=== PATIENT | male | born 1940 | race Hispanic/Latino ===

== ENCOUNTER 2020-03-08 15:53 | Inpatient (IN) | payer MEDICARE ==
[~2020-03-08] VITALS: Ht 172.7 cm; Wt 52.0 kg
[2020-03-08 16:50] LABS: BASOPHILS % (AUTO) 0.2 % (0.0-5.0); EOSINOPHILS % (AUTO) 0.2 % (0.0-8.0); HEMATOCRIT 39.8 % (42-54); LYMPHOCYTES % (AUTO) 18.3 % (21.0-51.0); MEAN CORPUSCULAR HEMOGLOBIN 30.3 pg (27.0-33.0); MEAN CORPUSCULAR HGB CONC 33.4 g/dL (32.0-36.0); MEAN CORPUSCULAR VOLUME 90.7 fL (79-99); MONOCYTES % (AUTO) 2.4 % (3.0-13.0); NEUTROPHILS % (AUTO) 78.4 % (40.0-77.0); PLATELET COUNT (AUTO) 126 K/uL (130-400); RED BLOOD CELL COUNT(AUTO) 4.39 MIL/uL (4.50-6.20); RED CELL DISTRIBUTION WIDTH 13.9 % (11.0-15.5); WHITE BLOOD COUNT (AUTO) 4.2 K/uL (4.8-10.8)
[2020-03-08 16:55] LABS: CREATININE 1.1 mg/dL (0.5-1.5); POTASSIUM 3.5 mmol/L (3.5-5.1)
[2020-03-08 17:18] LABS: ALBUMIN 2.9 g/dL (3.5-5.0); BILIRUBIN,TOTAL 0.3 mg/dL (0.2-1.0); TOTAL PROTEIN, SERUM 6.5 g/dL (6.0-8.3)
[2020-03-08 17:34] LABS: B-TYPE NATRIURETIC PEPTIDE 83 pg/mL (0-100)
[2020-03-08] MEDS ORDERED: ONDANSETRON HCL 4 MG/2 ML VIAL IVP PRN (19:30)
[2020-03-08] MEDS ORDERED: GUAIFENESIN SUGAR-FREE 100 MG/5 ML UDCUP PO PRN (19:30)
[2020-03-08] MEDS ORDERED: DiphenhydrAMINE HCL 50 MG/ML VIAL IVP PRN (19:30)
[2020-03-08] MEDS ORDERED: ACETAMINOPHEN 325 MG TAB PO PRN ×2 (19:30)
[2020-03-08] MEDS ORDERED: LACTULOSE 20 GM/30 ML UDCUP PO PRN (19:30)
[2020-03-08] MEDS ORDERED: DIPHENHYDRAMINE HCL 25 MG CAPSULE PO PRN (19:30)
[2020-03-08] MEDS ORDERED: ZOLPIDEM TARTRATE 5 MG TAB PO PRN (19:30)
[2020-03-08] MEDS ORDERED: MAG HYDROX/AL HYDROX/SIMETH ES 30 ML SUSP UDCUP PO PRN (19:30)
[2020-03-08] MEDS ORDERED: GUAIFENESIN-DM 200/20 MG 10 ML PO PRN (19:30)
[2020-03-08] MEDS ORDERED: NITROGLYCERIN 0.4 MG SL TAB SL PRN (19:30)
[2020-03-08] MEDS ORDERED: CLONIDINE HCL 0.1 MG TABLET PO PRN (19:30)
[2020-03-08] MEDS ORDERED: IPRATROPIUM/ALBUTEROL SULFATE 3 ML SOLUTION IH PRN (19:30)
[2020-03-08 20:34] LABS: APPEARANCE,URINE Cloudy (CLEAR); BILIRUBIN,URINE Negative (NEGATIVE); COLOR,URINE Yellow (YELLOW); GLUCOSE, URINE (UA) 250 mg/dL (NEGATIVE); KETONES,URINE Negative (NEGATIVE); LEUKOCYTE ESTERASE ,URINE Large (NEGATIVE); NITRATE,URINE Positive (NEGATIVE); OCCULT BLOOD,URINE Trace (NEGATIVE); PROTEIN,URINE POS 1+ mg/dL (NEGATIVE)
[2020-03-08 21:08] LABS: BACTERIA,URINE Many /HPF (None Seen); RBC,URINE None Seen /HPF (0-1); SQUAMOUS EPITHELIAL CELL,UR None Seen /HPF (0-2)
[2020-03-08 22:15] VITALS: BP 100/63
[2020-03-09] VITALS (7 sets, daily range): BP systolic 88–141; BP diastolic 42–71
[2020-03-09] MEDS ORDERED: SODIUM CHLORIDE 0.9% 1000ML 1,000 ML IV SCH (00:30)
[2020-03-09 05:31] LABS: HEMATOCRIT 42.5 % (42-54); MEAN CORPUSCULAR HEMOGLOBIN 30.8 pg (27.0-33.0); MEAN CORPUSCULAR HGB CONC 33.9 g/dL (32.0-36.0); MEAN CORPUSCULAR VOLUME 90.8 fL (79-99); RED BLOOD CELL COUNT(AUTO) 4.68 MIL/uL (4.50-6.20); RED CELL DISTRIBUTION WIDTH 13.9 % (11.0-15.5); WHITE BLOOD COUNT (AUTO) 5.4 K/uL (4.8-10.8)
[2020-03-09 06:13] LABS: ALBUMIN 2.7 g/dL (3.5-5.0); BILIRUBIN,TOTAL 0.4 mg/dL (0.2-1.0); CREATININE 0.9 mg/dL (0.5-1.5); POTASSIUM 3.5 mmol/L (3.5-5.1)
[2020-03-09] MEDS ORDERED: MELA5CAP PO (07:20)
[2020-03-09] MEDS ORDERED: MIRT-92 PO (07:20)
[2020-03-09] MEDS ORDERED: RISP1TAB89 PO (07:20)
[2020-03-09] MEDS ORDERED: LOVA20TA3 PO (07:22)
[2020-03-09] MEDS ORDERED: FAMO-136 PO (07:22)
[2020-03-09] MEDS ORDERED: DIPH25CA85 PO (07:22)
[2020-03-09] MEDS ORDERED: DONE5TAB5 PO (07:26)
[2020-03-09] MEDS ORDERED: TAMS-1 PO (07:26)
[2020-03-09] MEDS ORDERED: MULT-248 PO (07:26)
--- NOTE | 2020-03-09 07:45 | NUR ---
PRIMARY MD DR. WANG IN TO SEE PATIENT. NEW ORDERS RECEIVED AND CARRIED OUT.
[2020-03-09] MEDS ORDERED: DOCUSATE SODIUM 100 MG CAP PO PRN (08:00)
[2020-03-09] MEDS: DONEPEZIL HCL 5 MG TAB PO SCH (08:35)
[2020-03-09] MEDS: RISPERIDONE 1 MG TABLET PO SCH ×2 (08:35→21:26)
[2020-03-09] MEDS: FAMOTIDINE 20MG TAB 20 MG TAB PO SCH (08:35)
[2020-03-09] MEDS: MULTIVITAMIN WITH MINERALS TABLET PO SCH (09:00)
[2020-03-09] MEDS: DEXTROSE 5 %-0.45 % NACL 1,000 ML IV SCH ×2 (10:49→17:55)
--- NOTE | 2020-03-09 11:00 | NUR ---
chart reviewed, acf uploaded in one content Addendum: 03/09/20 at 1430 by MIGUE QUIROZ RN CM Amended: Links added.
--- NOTE | 2020-03-09 14:42 | NUR ---
RD NOTIFICATION Pt admitted with Lethargy, Dehydration, Rhabdomyolysis. Pt underweight, BMI 14.3. 75gm, Puree, NTL diet order in place. Recommend 30mL ProMod TID with meals. Recommend Glucerna 1.5 can (CHILLED) TID with meals RD to continue to monitor. Please notify as additional nutrition concerns arise. Thank you. Addendum: 03/09/20 at [address] Amended: Links added.
[2020-03-09] MEDS: SIMVASTATIN 20 MG TABLET PO SCH (21:25)
[2020-03-09] MEDS: TAMSULOSIN HCL 0.4 MG CAP.ER.24H PO SCH (21:25)
[2020-03-09] MEDS: MIRTAZAPINE 15 MG TABLET PO SCH (21:26)
[2020-03-10 03:53] VITALS: BP 83/45
[2020-03-10] MEDS: DEXTROSE 5 %-0.45 % NACL 1,000 ML IV SCH ×2 (04:22→15:00)
[2020-03-10 05:56] LABS: CREATININE 0.8 mg/dL (0.5-1.5); POTASSIUM 3.2 mmol/L (3.5-5.1)
[2020-03-10 06:04] LABS: HEMATOCRIT 36.2 % (42-54); MEAN CORPUSCULAR HEMOGLOBIN 30.5 pg (27.0-33.0); MEAN CORPUSCULAR HGB CONC 33.4 g/dL (32.0-36.0); MEAN CORPUSCULAR VOLUME 91.2 fL (79-99); PLATELET COUNT (AUTO) 76 K/uL (130-400); RED BLOOD CELL COUNT(AUTO) 3.97 MIL/uL (4.50-6.20); RED CELL DISTRIBUTION WIDTH 14.1 % (11.0-15.5); WHITE BLOOD COUNT (AUTO) 2.7 K/uL (4.8-10.8)
[2020-03-10 07:06] LABS: BAND NEUTROPHILS % (MANUAL) 44 % (0-2); LYMPHOCYTES % (MANUAL) 26 % (22-44); MAN.DIFF COMMENT-IMPRESSION MANUAL DIFFERENTIAL; MONOCYTES % (MANUAL) 7 % (2-9); PLATELET MORPHOLOGY COMMENT DECREASED; SEGMENTED NEUTROPHILS % 23 % (40-70)
[2020-03-10 08:00] VITALS: BP 106/47
[2020-03-10] MEDS ORDERED: POTASSIUM CHLORIDE 20MEQ/100ML 100 ML IV PRN (08:15)
[2020-03-10] MEDS ORDERED: MAGNESIUM 2GM PREMIX 50ML 50 ML IV PRN (08:15)
[2020-03-10] MEDS: SODIUM CHLORIDE 0.9% 1000ML 1,000 ML IV SCH ×2 (08:15→18:15)
[2020-03-10] MEDS ORDERED: POTASSIUM CHLORIDE 10% ELIXIR 20 MEQ/15 ML UDCUP PO PRN (08:15)
[2020-03-10] MEDS ORDERED: LIDOCAINE HCL-MPF 1% 2ML VIAL IV PRN ×2 (08:15)
[2020-03-10] MEDS ORDERED: POTASSIUM CHLORIDE 20 MEQ ERTAB PO PRN (08:15)
[2020-03-10] MEDS: FAMOTIDINE 20MG TAB 20 MG TAB PO SCH (10:24)
[2020-03-10] MEDS: CEFTRIAXONE SODIUM 1 GM IVP SCH (10:24)
[2020-03-10] MEDS: MULTIVITAMIN WITH MINERALS TABLET PO SCH (10:24)
[2020-03-10] MEDS: RISPERIDONE 1 MG TABLET PO SCH ×2 (10:24→19:53)
[2020-03-10] MEDS: DONEPEZIL HCL 5 MG TAB PO SCH (10:24)
[2020-03-10] MEDS: MEGESTROL 400 MG/10 ML UDCUP PO SCH (10:26)
--- NOTE | 2020-03-10 10:59 | NUR ---
Patient is unable to sign IM Letter, he is confused. There is no contact information listed on his facesheet so I am unable to get telephone consent.
[2020-03-10 11:52] LABS: ABG HCO3 24.7 mmol/L (21.0-28.0); ABG OXYGEN SATURATION 88.2 % (95.0-99.0); ABG PCO2 41 mmHg (35-48)
[2020-03-10 11:59] VITALS: BP 103/36
[2020-03-10] MEDS: POTASSIUM CHLORIDE 20MEQ/100ML 100 ML IV PRN (13:04)
[2020-03-10 16:43] VITALS: BP 92/47
--- NOTE | 2020-03-10 16:47 | NUR ---
CM NOTE/SNF REFERRAL PER FARAZ BARROW TO RETURN TO [facility] WHEN STABLE. FAMILY CALLED TO SPEAK IN REGARDS TO DC PLAN. FIRST DEMARCO (FELIX?) MIREILLE CALLED AT [phone], NO ANSWER AND VOICEMAIL FULL. NEXT VESNA HART CALLED AT [phone], NO ANSWER, VOICEMAIL LEFT. WILL CONTINUE TO F/U WITH FAMILY FOR COOKIE
--- NOTE | 2020-03-10 16:54 | NUR ---
CM NOTE/COOKIE/IA FELIX MIREILLE (SPOUSE) [phone] RETURNED CALL, OK TO RETURN TO [facility] WHEN MEDICALLY CLEARED. PER SPOUSE PATIENT IS BEDBOUND AND REQUIRES TOTAL CARE, PRIOR TO BEING IN [facility], HE WAS AT A [facility] IN [facility], SPOUSE DOESNT RECALL NAME AT THE MOMENT, MOVED TO [place] IN AUGUST 2018 AND HAS BEEN AT [facility] SINCE. CM TO FOLLOW UP WITH REFERRAL.
--- NOTE | 2020-03-10 17:16 | NUR ---
CM NOTE/IA SEE NOTE ON 03/10/20 TITLED CM NOTE/COOKIE/IA FOR IA INFORMATION. Addendum: 03/10/20 at 1718 by ADRIENNE PAULINO RN CM Amended: Links added.
--- NOTE | 2020-03-10 17:19 | NUR ---
CM NOTE/[facility] REFERRAL PER FARAZ BARROW TO RETURN TO SNF ONCE MEDICALLY CLEARED. MARITZA FROM [facility] MADE AWARE, CLINICAL PACKET EMAILED FOR REVIEW, PER MARITZA, NO PAS[facility] NEEDED. PENDING ACCEPTANCE AND MEDICAL CLEARANCE TO [facility]. CM TO FOLLOW UP.
[2020-03-10] MEDS: SIMVASTATIN 20 MG TABLET PO SCH (19:53)
[2020-03-10] MEDS: MIRTAZAPINE 15 MG TABLET PO SCH (19:53)
[2020-03-10] MEDS: TAMSULOSIN HCL 0.4 MG CAP.ER.24H PO SCH (19:53)
[2020-03-10 20:00] VITALS: BP 110/51
--- NOTE | 2020-03-10 21:00 | NUR ---
RECEIVED PATIENT IN BED, LETHARGIC, WITHDRAWS ONLY TO PAIN, DOES NOT OPEN EYES. PATIENT ON VENTI MASK AT 15L (50% FIO2) WITH SATURATIONS GREATER THAN 90%. HEART RATE BETWEEN 50-40 BPM. HOB ELEVATED. I CALLED DR. WANG, UPDATED ON STATUS INCLUDING CXR AND ABG RESULTS FROM E[facility]LI[facility] TODAY. INFORMED HIM ON HR AND THAT PATIENT IS ON VENTI MASK AND CONT TO BE LETHARGIC. NEW ORDER RECEIVED TO DISCONTINUE IV FLUIDS. SR UP X4, F/C DRAINING TO GRAVITY WITH CLEAR YELLOW URINE. WILL CONT TO MONITOR CLOSELY.
[2020-03-11] VITALS (8 sets, daily range): BP systolic 73–141; BP diastolic 38–71
--- NOTE | 2020-03-11 04:06 | NUR ---
LOW BP BP AT 73/38, I CALLED DR. WANG UPDATED ON STATUS. INSTRUCTED TO ADMINISTER 500 ML NS BOLUS. I INFORMED HIM THAT I SPOKE WITH PT'S DAUGHTER AND SHE TOLD ME THAT HER FATHER HAS DNR STATUS AT [facility]. I TOLD DR. WANG I WAS IN THE PROCESS OF CONTACTING PT'S SPOUSE TO VERIFY INFORMATION. I SPOKE WITH MRS. DEMARCO KENDRICK, SHE CONFIRMED AND STATED THAT HER IS TO HAVE DNR STATUS WHILE HERE IN HOSPITAL. DNR STATUS INITIATED AND DR. WANG AWARE. ORDER VERIFIED WITH ARLEEN NICHOLS. PT'S SPOUSE ENCOURAGE TO COME TO HOSPITAL IF ABLE. SHE STATES SHE WILL BE HERE IN ABOUT 2 HOURS
[2020-03-11 05:48] LABS: HEMATOCRIT 38.5 % (42-54); MEAN CORPUSCULAR HEMOGLOBIN 29.6 pg (27.0-33.0); MEAN CORPUSCULAR VOLUME 89.7 fL (79-99); RED BLOOD CELL COUNT(AUTO) 4.29 MIL/uL (4.50-6.20); RED CELL DISTRIBUTION WIDTH 14.1 % (11.0-15.5); WHITE BLOOD COUNT (AUTO) 2.5 K/uL (4.8-10.8)
[2020-03-11 06:25] LABS: CREATININE 0.8 mg/dL (0.5-1.5); MAGNESIUM 2.1 mg/dL (1.80-2.40); POTASSIUM 3.7 mmol/L (3.5-5.1)
[2020-03-11 07:44] LABS: ABG BASE EXCESS -0.3 mmol/L (-2.0-3.0); ABG HCO3 23.9 mmol/L (21.0-28.0); ABG OXYGEN SATURATION 88.1 % (95.0-99.0); ABG PCO2 38 mmHg (35-48)
[2020-03-11] MEDS: RISPERIDONE 1 MG TABLET PO SCH ×2 (09:00→21:00)
[2020-03-11] MEDS: MEGESTROL 400 MG/10 ML UDCUP PO SCH (09:00)
[2020-03-11] MEDS: DONEPEZIL HCL 5 MG TAB PO SCH (09:00)
[2020-03-11] MEDS: MULTIVITAMIN WITH MINERALS TABLET PO SCH (09:00)
[2020-03-11] MEDS: FAMOTIDINE 20MG TAB 20 MG TAB PO SCH (09:00)
[2020-03-11] MEDS: CEFTRIAXONE SODIUM 1 GM IVP SCH (09:41)
--- NOTE | 2020-03-11 10:32 | NUR ---
RD FOLLOW UP TUBE FEEDING NOTIFICATION RECEIVED Recommend Continuous, Glucerna 1.5 initiated at 20mls/hr for 5 hours. Recommend advance as tolerated by 5mls every 5 hours to goal. Goal rate: 45mls/hr to provide 1620kcal, 89 gm protein. FLUSHES: 150mL Q6hrs Tube feeding order form placed in Pt chart. Pt with lethargy, megace, poor PO intake on 75gm, puree, NTL diet order. Pt is nonverbal. BMI 14.3. RD to continue to monitor. Addendum: 03/11/20 at [address] Amended: Links added.
[2020-03-11 10:42] LABS: ABG BASE EXCESS -1.7 mmol/L (-2.0-3.0); ABG HCO3 21.2 mmol/L (21.0-28.0); ABG OXYGEN SATURATION 97.3 % (95.0-99.0); ABG PCO2 31 mmHg (35-48)
--- NOTE | 2020-03-11 11:41 | NUR ---
CM LENNY/[facility] APPROVED PER MARITZA AT [facility], PATIENT APPROVED TO RETURN. PENDING DC DATE FROM . PATIENT TO BE TRANSFERRED VIA EMS WHEN MEDICALLY CLEARED.
--- NOTE | 2020-03-11 13:10 | NUR ---
DYSPHAGIA EVAL COMPLETED. +S/S OF ASPIRATION. RECOMMEND ALTERNATE MCC MEANS OF NUTRITION/HYDRATION. RECOMMENDATIONS: DYSPHAGIA THERAPY 2-4XWEEK TO INCREASE ORAL MOTOR STRENGTH AND PHARYNGEAL SWALLOW: LTG#1: Pt WILL TOLERATE LEAST RESTRICTIVE DIET TO MEET NUTRITION/HYDRATION WITH NO S/S OF ASPIRATION. LTG#2: SKILLED EDUCATION Pt/FAMILY/STAFF STG#1: Pt WILL PARTICIPATE IN LARYNGEAL ELEVATION/EXCURSION EXERCISES WITH 80% ACCURACY. STG#2: Pt WILL PARTICIPATE IN TONGUE BASE RETRACTION EXERCISES WITH 80% ACCURACY. STG#3: Pt WILL PARTICIPATE IN ORAL MOTOR EXERCISES WITH 80% ACCURACY. STG#4: Pt WILL TOLERATE THERAPEUTIC TRIALS OF PLEASURE FEEDS OF THIN LIQUID WITH NO OVERT S/S OF ASPIRATION. STG#5: Pt WILL BE ABLE TO PARTICIPATE IN MBSS AFTER 2-4 WEEKS OF THERAPEUTIC INTERVENTION. STG#6: SKILLED EDUCATION Pt/FAMILY/STAFF. BRANCH LENDING OFFICER COORDINATED CARE WITH SID. Addendum: 03/11/[address] TUSHAR BENTON Amended: Links added.
--- NOTE | 2020-03-11 15:00 | NUR ---
IN AM INFORMED DR WANG ON ABG REPORT.. POST SPEECH THERAPY EVAL INFORMED HIM OF POOR RESULT ,FAILED TEST.. ALSO LET HIM KNOW PER DOES NOT WANT NGT PLACED AND IS UNDECIDED ON RECOMMENDATION FOR PEG TUBE ,PER IS WANTING FOR HER TO JUST BE COMFORTABLE AND NO PROCEDURES DONE AND WILL TALK WITH FAMILY FIRST IF TO GO AHEAD WITH PEG TUBE AND ON DECIDING FOR COMFORT MEASURES ONLY AND POSSIBLE HOSPICE ..
[2020-03-11] MEDS: TAMSULOSIN HCL 0.4 MG CAP.ER.24H PO SCH (21:00)
[2020-03-11] MEDS: MIRTAZAPINE 15 MG TABLET PO SCH (21:00)
[2020-03-11] MEDS: SIMVASTATIN 20 MG TABLET PO SCH (21:00)
[2020-03-12 03:36] VITALS: BP 94/42
[2020-03-12 04:40] LABS: MEAN CORPUSCULAR HEMOGLOBIN 30.1 pg (27.0-33.0); MEAN CORPUSCULAR HGB CONC 33.8 g/dL (32.0-36.0); MEAN CORPUSCULAR VOLUME 89.2 fL (79-99); RED BLOOD CELL COUNT(AUTO) 4.15 MIL/uL (4.50-6.20); RED CELL DISTRIBUTION WIDTH 13.9 % (11.0-15.5); WHITE BLOOD COUNT (AUTO) 3.7 K/uL (4.8-10.8)
[2020-03-12 04:50] LABS: CREATININE 0.9 mg/dL (0.5-1.5); POTASSIUM 3.4 mmol/L (3.5-5.1)
[2020-03-12] MEDS: POTASSIUM CHLORIDE 20MEQ/100ML 100 ML IV PRN (04:55)
[2020-03-12] MEDS: CEFTRIAXONE SODIUM 1 GM IVP SCH (07:21)
[2020-03-12 08:59] VITALS: BP 102/61
[2020-03-12] MEDS: MULTIVITAMIN WITH MINERALS TABLET PO SCH (09:00)
[2020-03-12] MEDS: DONEPEZIL HCL 5 MG TAB PO SCH (09:00)
[2020-03-12] MEDS: RISPERIDONE 1 MG TABLET PO SCH ×2 (09:00→18:58)
[2020-03-12] MEDS: FAMOTIDINE 20MG TAB 20 MG TAB PO SCH (09:00)
[2020-03-12] MEDS: MEGESTROL 400 MG/10 ML UDCUP PO SCH (09:00)
--- NOTE | 2020-03-12 09:00 | NUR ---
SWALLOWING TREATMENT COMPLETED. S: Pt VERY LETHARGIC AND PRODUCING UNCOMPREHENSIBLE SOUNDS. PRESENT AT BEDSIDE TO HELP AND ASSIST WITH THERAPEUTIC TRIALS. WAS INTRODUCING A WET SPONGE IN Pt ORAL CAVITY. Pt ATTEMPTED TO SUCK AND WAS TONGUE PUMPING. Pt CONTINUES WITH WET VOCAL SOUNDS AND AT HIGH RISK FOR ASPIRATION. O: Pt UNABLE TO FOLLOW BASIC/SIMPLE COMMANDS TO PROCEED WITH SWALLOWING GOALS. LIEUTENANT/DEPUTY ATTEMPTED ORAL STIMULATION EXERCISES AND THERMAL TACTILE STIMULATION WITH MAX CUES. Pt CONTINUED WITH DECREASED ATTENTION TO THERAPEUTIC TRIALS. A: LIEUTENANT/DEPUTY EDUCATED FAMILY MEMBER AND STAFF OF RISKS AND CONSEQUENCES OF ASPIRATION. P: Pt CURRENTLY NPO. PER NURSE LAU, FAMILY MEMBERS REFUSING NG TUBE OR PEG PLACEMENT FOR Pt. Pt WILL BE RECEIVING ALTERNATE MEANS OF NUTRITION/HYDRATION. LIEUTENANT/DEPUTY WILL CONTINUE TO FOLLOW Pt. LIEUTENANT/DEPUTY COORDINATED WITH NURSE LAU. Addendum: 03/12/[address] TUSHAR BENTON Amended: Links added.
[2020-03-12 09:24] LABS: INR 1.1 (0.85-1.15); PARTIAL THROMBOPLASTIN TIME 46.3 SEC (26.3-35.5); PROTHROMBIN TIME 11.8 SEC (9.6-11.6)
--- NOTE | 2020-03-12 11:41 | NUR ---
RD UPDATE RD notified for Low Rate TPN. Recommend 50ml/hour. Rate provides 60gm protein, 180gm dextrose, 852kcal. Pending PICC placement. Possible hospice. RD to monitor for continued POC and TPN rate advancement.
[2020-03-12 12:31] VITALS: BP 85/49
[2020-03-12 17:16] VITALS: BP 97/61
[2020-03-12] MEDS: SIMVASTATIN 20 MG TABLET PO SCH (18:58)
[2020-03-12] MEDS: TAMSULOSIN HCL 0.4 MG CAP.ER.24H PO SCH (18:58)
[2020-03-12] MEDS: MIRTAZAPINE 15 MG TABLET PO SCH (18:58)
[2020-03-12 20:25] VITALS: BP 96/50
[2020-03-12 23:57] VITALS: BP 121/50
[2020-03-13 04:04] VITALS: BP 146/60
--- NOTE | 2020-03-13 07:35 | NUR ---
Received BiPAP orders. Attempted to initiate bipap orders but refused. I explained informed her about the bipap but still refused. She stated, "I just want him comfortable, I don't want anything anymore." Informed Camila NICHOLS that wanted to take him home with hospice and refused bipap.
[2020-03-13 08:00] VITALS: BP 146/60
[2020-03-13] MEDS: RISPERIDONE 1 MG TABLET PO SCH (08:03)
[2020-03-13] MEDS: FAMOTIDINE 20MG TAB 20 MG TAB PO SCH (08:03)
[2020-03-13] MEDS: MULTIVITAMIN WITH MINERALS TABLET PO SCH (08:03)
[2020-03-13] MEDS: MEGESTROL 400 MG/10 ML UDCUP PO SCH (08:03)
[2020-03-13] MEDS: DONEPEZIL HCL 5 MG TAB PO SCH (08:03)
[2020-03-13] MEDS ORDERED: M.V.I. IV [ADULT] 10 ML in CLINIMIX E 5%-15% 2,000 ML IV SCH (09:00)
--- NOTE | 2020-03-13 11:23 | NUR ---
DCP: HOME WITH [facility] Sw met with pt's at bedside. states she has decided to take pt home, she accepts that pt is going to pass and she would like him at home with her when he does. Sw educated on hospice services at home and OOHDNR. Pt agreeable to referral and is agreeable to [facility]. wants to dc home today. Sw contacted [facility] at [facility] [phone] gave verbal referral and faxed pt information and OOHDNR for hospice MD to sign. [facility] to make contact with Johanna Wong to meet for consent and DME delivery. to contact provider service agency for possible increase in hours. CM aware and making EMS arrangements
--- NOTE | 2020-03-13 11:40 | NUR ---
DC PLAN NEW ORDER FOR HOSPICE. [facility] NOTIFIED. NEW PLAN DC HOME WITH HOSPICE. EMS SET UP FOR HOME WITH ADDRESS PROVIDED BY SPOUSE. PENDING DNR FORM FROM DR. WANG AND EQUIPMENT TO BE DELIVERED. Addendum: 03/13/20 at 1141 by DEYA WOMACK RN CM Amended: Links added.
[2020-03-13 11:49] VITALS: BP 126/57
--- NOTE | 2020-03-13 14:17 | NUR ---
RD UPDATE TPN initiated at 50mls/hr. Pt pending Hospice at time of screen. RD to follow continued POC. Comfort measures. Please notify RD if additional nutritional measures desired.
--- NOTE | 2020-03-13 14:30 | NUR ---
REPORT GIVEN TO MINGO HER RN AT [facility]. ALL QUESTIONS ANSWERED ACCORDINGLY. NO CONCERNS VOICED.
--- NOTE | 2020-03-13 15:15 | NUR ---
DME at the home and OOHDNR placed in chart. Brenda pt's nurse aware that pt is ready for dc. CM also made aware
--- NOTE | 2020-03-13 16:00 | NUR ---
EMS HERE TO TAKE PATIENT HOME. PICC LINE D/C PER DR WANG ORDERS. PATIENT LEFT WITH [place]IFT[place] CATHETER IN PLACE. PATIENT O2 SAT IS IN THE LOW 90s. APNEIC EPISODES. CONNECTED TO NON-REBREATHER MASK.
== END 2020-03-13 16:25 | disposition hospice, home (50) | DRG 557 ==
LOC: EDH 15:53 → EDHIP 18:58 → OBSVTOIN 18:58 → 3AH 20:14
PROVIDERS: ADMIT Family Medicine; ATTEND Family Medicine
PROC: 05HY33Z Insertion of Infusion Device into Upper Vein, Percutaneous Approach (ICD-10-PCS; principal; 2020-03-12)
DX: M62.82 Rhabdomyolysis (principal); J96.90 Respiratory failure, unspecified, unspecified whether with hypoxia or hypercapnia; N39.0 Urinary tract infection, site not specified; E86.0 Dehydration; F02.80 Dementia in other diseases classified elsewhere, unspecified severity, without behavioral disturbance, psychotic disturbance, mood disturbance, and anxiety; G30.9 Alzheimer's disease, unspecified; E11.9 Type 2 diabetes mellitus without complications; I95.9 Hypotension, unspecified; N40.0 Benign prostatic hyperplasia without lower urinary tract symptoms; K21.9 Gastro-esophageal reflux disease without esophagitis; E78.00 Pure hypercholesterolemia, unspecified; R13.12 Dysphagia, oropharyngeal phase; E87.6 Hypokalemia; Z51.5 Encounter for palliative care; Z66 Do not resuscitate
CPT/HCPCS: 36415; 36600; 70450; 71045; 80048; 80053; 81001; 82550; 82803; 82948; 83735; 83880; 84484; 85025; 85027; 85610; 85730; 87077; 87088; 87186; 87804; 92526; 92610; 93005; 94664; C1894; G0378; J0696; J3475; J3480; J3490; J7030; J7042